=== PATIENT | female | born 1950 | race Hispanic/Latino ===

== ENCOUNTER 2017-12-31 06:27 | Day surgery (SDC) | payer MEDICARE, OTHER ==
[2017-12-26 10:22] VITALS: BMI 22.0
[2017-12-31 07:15] LABS: BLOOD UREA NITROGEN 8 mg/dL (7-21); CALCIUM 9.3 mg/dL (8.4-10.5); GFR AFRICAN-AMERICAN > 60; GFR NON-AFRICAN AMERICAN > 60
[2017-12-31] MEDS ORDERED: Iohexol 240 (50 ml) ONE (07:21)
[2017-12-31] MEDS ORDERED: Bupivacaine 0.5% Inj(30mL) ONE (07:21)
[2017-12-31] MEDS ORDERED: Propofol 10 mg/ml Inj (20 ML) ONE ×2 (07:35→09:34)
[2017-12-31] MEDS ORDERED: Midazolam 2 MG/2 ML VIAL ONE (07:35)
[2017-12-31] MEDS ORDERED: Rocuronium 10 mg/ml (5 ml) ONE (07:41)
[2017-12-31] MEDS ORDERED: ePHEDrine 50 mg/ml Inj ONE (08:20)
[2017-12-31] MEDS ORDERED: Desflurane Inhalation Anesthetic Liq (240 ml) ONE (08:21)
[2017-12-31] MEDS ORDERED: Neostigmine Methylsulfate 3mg/3ml Syringe IV ONE (09:33)
--- NOTE | 2017-12-31 09:38 | RAD ---
Date of service: 12/31/2017 PROCEDURE: Operative cholangiogram HISTORY: R/O OBSTRUCTION COMPARISON: TECHNIQUE: 18.6 seconds of fluoro time. Cumulative dose 3.9 mGy. Two images submitted FINDINGS: Contrast flows into the duodenum without obstruction. There are no filling defects IMPRESSION: As above
--- NOTE | 2017-12-31 09:58 | PCM.SURG1 ---
Surgeon's Initial Post Op Note - Surgeon's Notes Surgeon: Dr. Santos Sales Planning Analyst: Ana María Mathew, PGY2. Niall Kong MS3 Type of Anesthesia: General Endo Anesthesia Administered By: Dr. Boo Pre-Operative Diagnosis: symptomatic cholelithiasis, possible choledocholithiasis Operative Findings: Dense midline and pelvic adhesions. Distended gallbladder, gall stone palpable through gallbladder, normal anatomy, hemostasis attained at end of operation through cautery Post-Operative Diagnosis: symptomatic cholelithiasis, dense intraperitoneal adhesions Operation Performed: laparoscopic cholecystectomy with intraoperative cholangiogram and extensive lysis of adhesions Specimen/Specimens Removed: gallbladder Estimated Blood Loss: EBL {In ML}: 10 Blood Products Given: N/A Drains Used: No Drains Post-Op Condition: Fair Date of Surgery/Procedure: 12/31/17 Time of Surgery/Procedure: 08:00
[2017-12-31] MEDS ORDERED: Lactated Ringer's 1,000 ML IV SCH (10:00)
[2017-12-31 11:12] VITALS: O2SAT 99
[2017-12-31 15:37] VITALS: BP 122/74; PULSE 62; RESP 18; TEMP 98
--- NOTE | 2017-12-31 18:23 | OP ---
PROCEDURE DATE: 12/31/2017 PREOPERATIVE DIAGNOSES: Chronic cholecystitis, cholelithiasis. POSTOPERATIVE DIAGNOSES: Chronic cholecystitis, cholelithiasis. PROCEDURE PERFORMED: Laparoscopic cholecystectomy with intraoperative cholangiogram. SURGEON: Drake Santos MD. INSTRUMENT ROOM TECHNICIAN: Ana María Mathew DO TYPE OF ANESTHESIA: General endotracheal anesthesia. ANESTHESIA ADMINISTERED BY: Dr. Boo. ESTIMATED BLOOD LOSS: Minimal. SPECIMEN: Gallbladder and stone. INDICATION: The patient is a 67-year-old female with history of previous abdominoplasty who was seen in the office complaining of recurrent right upper quadrant abdominal pain and was noted to have cholelithiasis on the ultrasound. The patient was scheduled for laparoscopic cholecystectomy. DESCRIPTION OF PROCEDURE: The patient was brought to the operating room and placed on the operating table in supine position. The patient was connected to the EKG, blood pressure, and pulse oximetry monitors. The patient then underwent general endotracheal anesthesia and was prepped and draped in the usual sterile fashion. First standard time-out procedure took place when everybody in the room agreed as to this patient's identity, diagnoses, and procedure to be performed. Using 2 towel clips, the anterior abdominal wall was elevated carefully and an incision was made directly overlying the midline above the umbilicus, which was previously reimplanted. The incision was carried through down to the fascia and fascia was grabbed with Kenia clamps, elevated. A small incision was made in it and after a small dissection, we were able to notice the abdominal cavity and a trocar was inserted. A direct visualization opening was made due to the fact that the patient was claiming she had a mesh previously placed; however, there was no evidence of mesh noted on dissection. Now, the pneumoperitoneum was obtained. A careful evaluation of the abdominal cavity revealed the presence of collapsed gallbladder with some adhesions of the omentum to it. There was also multiple adhesions of omentum to the anterior abdominal wall both in the right upper quadrant as well as right lower quadrant and midline. I then proceeded with placing a second 5 mm trocar in the subxiphoid position and proceeded with dissection of the cystic duct. The infundibulum was grabbed. Peritoneum was stripped from the cystic duct and cystic duct was exposed, from the surrounding tissue and carefully visualized. The cystic artery was directly behind it, it was skeletonized and visualized. Now, the cystic duct was clipped proximally and a small incision was made on the side of it for placement of the cholangiocatheter. Once this was in place, a cholangiogram was obtained under direct visualization with fluoroscopy. That revealed prompt flow of dye into the entire biliary tree and emptying into the duodenum without any obstruction. At this point, the cystic duct catheter was removed. Cystic duct was clipped distally and transected. Cystic artery was also clipped proximally and distally and transected. Using electrocautery, the gallbladder was taken off its liver bed and removed through the periumbilical incision. There was excellent hemostasis noted there. We then proceeded with lysis of adhesions in the right upper quadrant as well as in the right lower quadrant as those were located in the area that could be easily wrapped with bowel and cause internal herniation. Once these were detached, we then proceeded with irrigating the right upper quadrant, suctioning out all the irrigant fluid and after assuring that there was excellent hemostasis through the bed of the liver as well as the trocar site, we then proceeded with releasing pneumoperitoneum with removal of the trocar and closure of the wound using 0-Vicryl for the fascia, 3-0 Vicryl for subcutaneous tissue and 4-0 Monocryl for skin. A sterile Dermabond dressing was applied to the wound. The patient tolerated the procedure well and there were no complications. The patient was awakened and transferred to the recovery room for further observation. Drake Santos MD
== END 2017-12-31 15:30 | disposition home or self-care (01) ==
LOC: SDS 06:27
PROVIDERS: ATTEND General Practice
DX: K80.10 Calculus of gallbladder with chronic cholecystitis without obstruction (principal); K66.0 Peritoneal adhesions (postprocedural) (postinfection)
CPT/HCPCS: 36415; 47563; 74300; 80048; 88304; J0131; J0690; J2001; J2250; J2405; J2704; J2710; J3010; J7120 ×2; Q9966